=== PATIENT | female | born 1945 | race Caucasian/White ===

== ENCOUNTER 2016-12-17 11:17 | Emergency (ER) | payer MEDICARE | END 2016-12-17 14:10 | disposition home or self-care (01) | LOC: ER1 11:17 | DX: G43.909 Migraine, unspecified, not intractable, without status migrainosus (principal); L40.9 Psoriasis, unspecified; B02.9 Zoster without complications | CPT/HCPCS: 96372; 99283; J1200; J1885; J2765 ==